=== PATIENT | female | born 1990 | race Hispanic/Latino ===

== ENCOUNTER 2020-11-23 00:03 | Inpatient (IN) | payer OTHER ==
[~2020-11-23] VITALS: Ht 165.1 cm; Wt 66.7 kg
[~2020-11-23 00:03] MED LIST: FENUGREEK500 MG PO
--- NOTE | 2020-11-23 13:03 | PR ---
[facility] [address] [facility] [place], [place] [address] Signed Progress Notes IP Datetime Report Generated by CPN: 11/23/2020 13:03 PROGRESS NOTES: [id number] Other Impressions: Slow progression Procedures: Intrauterine Pressure Catheter Plan: Continue Present Management; Augmentation; Anticipate Vaginal Delivery VITAL SIGNS: [id number] Vital Signs: Reviewed; Within Normal Limits EXAM: [id number] Dilatation: 3.0 Effacement: 80 Station: -2 MEMBRANES: [id number] Membranes Status: Ruptured Amniotic Fluid Color: Clear ROM Note: SROM reported felt per pt after VE completed Comments: Tolerating contractions well, on Pitocin but so far no real change since starting. IUPC inserted, will continue to adjust Pitocin dose. FETUS A: [id number] FHR Baseline: 150 Variability: Moderate 6-25bpm Accelerations: 15X15 Presentation: Vertex FETUS B: [id number] Signing Physician: Jamar Hills MD Copies: ~ *Electronically Signed* 11/23/20 1303 JAMAR HILLS MD PATIENT NAME: CATA IZQUIERDO PROGRESS NOTE DATE OF : 88 PHYSICIAN: JAMAR HILLS MD RPT #: [id number] REPORT IS CONFIDENTIAL AND NOT TO BE RELEASED WITHOUT AUTHORIZATION
--- NOTE | 2020-11-23 18:03 | PR ---
[facility] [address] [facility] [place], [place] [address] Signed Progress Notes IP Datetime Report Generated by CPN: 11/23/2020 18:03 PROGRESS NOTES: [id number] Impression: Normal Progression of Labor Other Impressions: Slow progression Procedures: Intrauterine Pressure Catheter Plan: Continue Present Management; Anticipate Vaginal Delivery VITAL SIGNS: [id number] Vital Signs: Reviewed; Within Normal Limits EXAM: [id number] Dilatation: 4.0 Effacement: 80 Station: -2 MEMBRANES: [id number] Membranes Status: Ruptured Amniotic Fluid Color: Clear ROM Note: Forebag amniotomy by Dr. Hills Comments: Tolerating contractions well, but getting stronger, closer together, more uncofortable; will back off on Pitocin rate, sicne beginning to make significant change FETUS A: [id number] FHR Baseline: 150 Variability: Moderate 6-25bpm Accelerations: 15X15 Presentation: Vertex FETUS B: [id number] Signing Physician: Jamar Hills MD Copies: ~ *Electronically Signed* 11/23/20 180 JAMAR HILLS MD PATIENT NAME: CATA IZQUIERDO PROGRESS NOTE DATE OF : 89 PHYSICIAN: JAMAR HILLS MD RPT #: [id number] REPORT IS CONFIDENTIAL AND NOT TO BE RELEASED WITHOUT AUTHORIZATION
--- NOTE | 2020-11-24 13:07 | PR ---
[facility] [address] [place] [address] Signed PP Progress Notes Datetime Report Generated by CPN: 11/24/2020 13:07 SUBJECTIVE: [id number] Pain: Within Normal Limits Nausea/Vomiting: Denies Vital Signs: [id number] Vital Signs: Reviewed; Within Normal Limits Notable Details: PP Hgb/Hct = 10.8/31.9 Abdomen/Uterus: Normal Lochia: Normal Extremities: Normal IMPRESSION/PLAN/PROCEDURES: [id number] Impression: Normal Progression Plan: Discharge Procedures: None Progress Notes: Doing well, without complalint, wants to go home tonight. Signing Physician: Jamar Hills MD Copies: ~ *Electronically Signed* 11/24/20 1307 JAMAR HILLS MD PATIENT NAME: CATA IZQUIERDO PROGRESS NOTE DATE OF : 89 PHYSICIAN: JAMAR HILLS MD RPT #: [id number] REPORT IS CONFIDENTIAL AND NOT TO BE RELEASED WITHOUT AUTHORIZATION
== END 2020-11-24 21:00 | disposition home or self-care (01) | DRG 807 ==
LOC: FBC 00:03
PROVIDERS: ADMIT General Practice; ATTEND General Practice
PROC: 10E0XZZ Delivery of Products of Conception, External Approach (ICD-10-PCS; principal; 2020-11-23)
PROC: 0HQ9XZZ Repair Perineum Skin, External Approach (ICD-10-PCS; 2020-11-23)
PROC: 10H07YZ Insertion of Other Device into Products of Conception, Via Natural or Artificial Opening (ICD-10-PCS; 2020-11-23)
PROC: 10907ZC Drainage of Amniotic Fluid, Therapeutic from Products of Conception, Via Natural or Artificial Opening (ICD-10-PCS; 2020-11-23)
DX: O70.0 First degree perineal laceration during delivery (principal); Z37.0 Single live birth; Z3A.39 39 weeks gestation of pregnancy; O99.892 Other specified diseases and conditions complicating childbirth; R45.4 Irritability and anger; Z86.16 Personal history of COVID-19
CPT/HCPCS: 36415; 85027; A9270; J2550; J2590; J3010; J7121

== ENCOUNTER 2023-07-24 16:09 | Inpatient (IN) | payer OTHER ==
[~2023-07-24] VITALS: Ht 165.1 cm; Wt 65.8 kg
--- NOTE | ~2023-07-24 | OR ---
[facility] [address] [place], [place] [address] Draft DATE OF OPERATION: 07/26/2023 SURGEON: Libia Cooper DO PREOPERATIVE DIAGNOSES: 1. hemorrhage secondary to uterine atony. 2. Acute blood loss anemia. 3. Syncope. POSTOPERATIVE DIAGNOSES: 1. hemorrhage secondary to uterine atony. 2. Acute blood loss anemia. 3. Syncope. PROCEDURES PERFORMED: 1. Exam under anesthesia. 2. Uterine curettage. 3. Placement of Marivel intrauterine system. ANESTHESIA: General. ESTIMATED BLOOD LOSS: 10 mL. SPECIMEN: None. DRAINS: Kendall to gravity. IMPLANTS: Marivel intrauterine system. PACKING: None. FINDINGS: Uterus firm and hemostatic with prior treatments and continued bimanual pressure to the OR. No lacerations of the perineum, vagina, or cervix. Gentle curettage was performed PATIENT NAME: CATA IZQUIERDO OPERATIVE REPORT DATE OF : [birth year] REPORT #: [id number] PHYSICIAN: LIBIA COOPER (MOSES) PCP: JAMAR HILLS MD REPORT IS CONFIDENTIAL AND NOT TO BE RELEASED WITHOUT AUTHORIZATION [facility] [address] [place] [address] Draft that demonstrated scant clot and no retained products of conception. Marivel device was placed without difficulty and less than 10 mL of blood in the suction tubing. The uterus is involuted and firm. The patient tolerated the procedure well and blood was transfused as ordered. COMPLICATIONS: None. INDICATION: Ms. Ayala is a very pleasant 32-year-old G3, now P3 female with spontaneous vaginal delivery yesterday evening. Labor was uncomplicated and bleeding initially was minimal. The patient with some mild uterine atony overnight that responded with Pitocin and bimanual massage and a Cytotec suppository was placed by the RN. I was called after the patient passed a large clot and had syncope while ambulating to the restroom. I immediately responded to the patient's room and evaluated the patient. Two additional IV sites were placed. Crystalloid was running. The patient was administered tranexamic acid, Methergine and Pitocin. The bleeding significantly improved and continued at a very slow rate with bimanual pressure. Two units of packed red blood cells were ordered and labs demonstrated normal fibrinogen and somewhat decreased hemoglobin. Decision was made to proceed with exam under anesthesia, dilation and curettage, versus Marivel system and any other indicated procedures up to and including life-saving hysterectomy. Risks, benefits, and alternatives were discussed in detail with the patient. The patient understands and wished to proceed with the procedure. TECHNIQUE: The patient was taken to the operating room. A time-out was performed to confirm correct procedure and correct patient. General anesthesia was adequately established. The patient was prepped and draped in the dorsal lithotomy position with her feet in Yellofin stirrups and again bimanual pressure had been held this entire time with scant amount of bleeding at this point. Kendall catheter was previously inserted draining good amount of clear yellow urine. The patient received Ancef 2 g preoperatively and no heparin was indicated. A weighted speculum was placed in the vagina and the anterior and posterior lips of the cervix was grasped with ring forceps. The perineum, vagina, and cervix were carefully examined and demonstrated no lacerations or bleeding. A banjo curette was selected and advanced very gently to the uterine fundus and a very gentle circumferential curettage was performed demonstrating scant amount of clot and decidua with no retained products of conception. Again, this curettage was very gentle. The Marivel intrauterine system was then selected and removed from the and the device gently guided into the uterus. The cervical balloon was then inflated to 60 mL of sterile fluid and incomplete seal was noted and another 60 mL were placed per substation mechanic's recommendation for total of 120 mL demonstrating excellent uterine seal. PATIENT NAME: CATA IZQUIERDO OPERATIVE REPORT DATE OF : [birth year] REPORT #: [id number] PHYSICIAN: LIBIA COOPER (MOSES) PCP: JAMAR HILLS MD REPORT IS CONFIDENTIAL AND NOT TO BE RELEASED WITHOUT AUTHORIZATION [address] [address] [place] The ring forceps were removed and suction tubing was then placed to 80 mm. Scant amount of blood was noted in the suction tubing less than 10 mL. The patient was observed for 5 to 7 minutes with no additional bleeding or concerning findings and the patient was taken to PACU in good and stable condition. Sponge, needle and instrument count was correct x2 at the end of the procedure. Libia Cooper DO JDW/MODL /[id number] Copies: ~ PATIENT NAME: JAS DUNNCATA OPERATIVE REPORT DATE OF : 89 REPORT #: [id number] PHYSICIAN: LIBIA COOPER) PCP: JAMAR HILLS MD REPORT IS CONFIDENTIAL AND NOT TO BE RELEASED WITHOUT AUTHORIZATION
--- OUTSIDE RECORDS SUMMARY | ~2023-07-24 | XMS | Continuity of Care Document ---
Demographics + + + | Address | [address] | | | [place] [address] | + + + | Preferred Language | Unknown | + + + | Marital Status | Never | + + + | Latter-Day Affiliation | Unknown | + + + | Race | Unknown | + + + | Ethnic Group | or | + + + Author + + + | Author | [facility] | + + + | Organization | [facility] | + + + | Address | [address] | | | [place] [address] | + + + | Phone | | + + + Care Team Providers + + + + | Care Staff Occupational Therapist Name | Role | Phone | + + + + Unavailable | Unavailable | + + + + Allergies and Intolerances + + + + + + | date | description | facility | reaction | severity | + + + + + + | (no date) | No Known | [facility] | (no reaction) | (no severity) | | | Allergies | | | | + + + + + + Encounters No information. Functional Status No information. Immunizations No information. Medications No information. Problems + + + + | date | description | facility | + + + + | 2023-05-02 10:23 | INJ/POISN/OTH CONSEQ OF | [facility] | | | EXTRN CAUSES COMP PREG, SE | | + + + + | 2023-05-02 10:23 | INJ/POISN/OTH CONSEQ OF | [facility] | | | EXTERNAL CAUSES COMP PREG, | | | | UNSP TRI | | + + + + | 2023-05-02 10:23 | UNSPECIFIED FALL, INITIAL | [facility] | | | ENCOUNTER | | + + + + | 2023-05-02 10:23 | 25 WEEKS GESTATION OF | [facility] | | | | | + + + + | 2023-05-23 02:40 | RIGHT UPPER QUADRANT PAIN | [facility] | + + + + Procedures No information. Results/Labs No information. Social History No information. Vital Signs No information."
[2023-07-25 00:56] LABS: HEMATOCRIT 34.1 % (35.0-50.0); HEMOGLOBIN 11.9 g/dL (12.0-18.0); MCH 30.1 (27-36); RBC 3.96 M/ul (4.3-5.7)
[2023-07-25 01:01] LABS: AMPHETAMINES, UR NEGATIVE (NEGATIVE); BARBITURATES, UR NEGATIVE (NEGATIVE); BENZODIAZEPINES, UR NEGATIVE (NEGATIVE); BUPRENORPHINE,UR NEGATIVE (NEGATIVE); COCAINE, UR NEGATIVE (NEGATIVE); MARIJUANA (THC), UR NEGATIVE (NEGATIVE); MDMA, UR NEGATIVE (NEGATIVE); METHADONE, UR NEGATIVE (NEGATIVE); METHAMPHETAMINE, UR NEGATIVE (NEGATIVE); OPIATES, UR NEGATIVE (NEGATIVE); OXYCODONE, UR NEGATIVE (NEGATIVE); PHENCYCLIDINE, UR NEGATIVE (NEGATIVE); TRICYCLIC ANTIDEPRESSANT, UR NEGATIVE (NEGATIVE)
[2023-07-25 01:30] LABS: ABO B; ANTIBODY SCREEN NEGATIVE; RH POSITIVE
[2023-07-25 01:32] VITALS: BP 113/53
--- NOTE | 2023-07-25 14:19 | PR ---
[facility] [address] [place], [place] [address] Signed Progress Notes IP Datetime Report Generated by CPN: 07/25/2023 14:19 PROGRESS NOTES: [id number] Impression: Normal Progression of Labor Procedures: Artificial ROM Plan: Continue Present Management Informed Consent Obtain: Vaginal Delivery VITAL SIGNS: [id number] Vital Signs: Reviewed; Within Normal Limits EXAM: [id number] Dilatation: 3.5 Effacement: 50 Station: -3 Contractions: Rare MEMBRANES: [id number] Comments: Pt seen and examined. Doing well. PAinful contractions. Discussed AROM and pt desires. Cephalic and well applied to cervix. AROM easily performed for moderate amount clear fluid FETUS A: [id number] FHR Baseline: 130 Accelerations: 15X15 Decelerations: None FHR Category: Category I Presentation: Vertex Comments on Fetus A: No evidence of metabolic acidosis FETUS B: [id number] Signing Physician: Libia Cooper DO Copies: ~ *Electronically Signed* 07/25/23 1419 LIBIA COOPER (MOSES) DO PATIENT NAME: CATA IZQUIERDO PROGRESS NOTE DATE OF : 89 PHYSICIAN: LIBIA COOPER) DO RPT #: [id number] REPORT IS CONFIDENTIAL AND NOT TO BE RELEASED WITHOUT AUTHORIZATION
--- NOTE | 2023-07-25 18:09 | PR ---
[facility] [address] [facility] [place] [address] Signed Progress Notes IP Datetime Report Generated by CPN: 07/25/2023 18:09 PROGRESS NOTES: [id number] Impression: Normal Progression of Labor; Reassuring Heart Rate Procedures: Artificial ROM Plan: Continue Present Management; Anticipate Vaginal Delivery Informed Consent Obtain: Vaginal Delivery VITAL SIGNS: [id number] Vital Signs: Reviewed; Within Normal Limits EXAM: [id number] Dilatation: 5.5 Effacement: 70 Station: -2 Contractions: Rare MEMBRANES: [id number] Comments: Pt seen and evaluated. Uncomfortable w/ contractions. Using nitrous w/ some slight improvement. Declines epidural. Reviewed normal progession of labor, reassuring FHT, and anticipated course of labor / delivery. All questions answered FETUS A: [id number] FHR Baseline: 130 Accelerations: 15X15 Decelerations: None FHR Category: Category I Presentation: Vertex Comments on Fetus A: No evidence of metabolic acidosis FETUS B: [id number] Signing Physician: Libia Cooper DO Copies: ~ *Electronically Signed* 07/25/23 2434 LIBIA COOPER (MOSES) DO PATIENT NAME: CATA IZQUIERDO PROGRESS NOTE DATE OF : 89 PHYSICIAN: LIBIA COOPER (JD) DO RPT #: [id number] REPORT IS CONFIDENTIAL AND NOT TO BE RELEASED WITHOUT AUTHORIZATION
[2023-07-26 03:20] LABS: BASOPHILS 0.5 % (0-2); HEMATOCRIT 27.3 % (35.0-50.0); HEMOGLOBIN 9.3 g/dL (12.0-18.0); LYMPHOCYTES 22.4 % (24-44); MCH 29.9 (27-36); MCHC 34.2 g/dl (30-36); MCV 87.4 fl (81-99); MONOCYTES 6.7 % (0-12); NEUTROPHILS 70.4 % (39-80); PLATELET COUNT 226 K/uL (140-440); RBC 3.13 M/ul (4.3-5.7)
[2023-07-26 03:36] LABS: INR 1.09 (0.80-1.30); PROTIME 13.7 Sec (11.2-14.2)
--- NOTE | 2023-07-26 04:13 | NUR ---
RESPONDED TO A RAPID RESONSE TEAM AND UPON ARRIVAL FOUND FEMALE PATIENT ON THE FLOOR PALE, SHAKING AND LOSING BLOOD. TEAM PLACED PATIENT BACK INTO BED AND I PLACED O2 VIA SIMPLE MASK AT 15 LPM. SPO2 WAS THEN 100%, BP STABLE. PATIENT COLOR IMPROVED AND SHAKING RESOLVED. ER DOCTOR AND SURGEON PRESENT. FLUIDS GOING AND LAB NOTIFIED OF NEED FOR BLOOD. OR CREW ARRIVING AND RT WAS RELEASE BY INVESTMENT ACCOUNTING CLERK.
[2023-07-26 05:16] LABS: ALBUMIN 1.9 g/dL (3.4-5.0); ALBUMIN/GLOBULIN RATIO 0.68 (1.1-2.4); ANION GAP 13.9 (7-21); BILIRUBIN, TOTAL 0.4 ng/dL (0.2-1.0); CALCIUM 7.7 mg/dL (8.5-10.1); CREATININE, SERUM 0.8 mg/dL (0.55-1.02); POTASSIUM 3.9 mmol/L (3.5-5.1); PROTEIN, TOTAL 4.7 g/dL (6.4-8.2)
[2023-07-26 05:40] VITALS: BP 112/78
[2023-07-26 05:48] LABS: HEMATOCRIT 33.2 % (35.0-50.0); HEMOGLOBIN 11.4 g/dL (12.0-18.0); MCH 30.1 (27-36); MCHC 34.3 g/dl (30-36); MCV 87.8 fl (81-99); RBC 3.78 M/ul (4.3-5.7); RDW 13.2 (10.5-15.0)
--- NOTE | 2023-07-26 05:48 | NUR ---
07/26/23 0548 Basilia [place] 0431- PT ARRIVES TO UNIT VIA STRETCHER FROM OR. PT IS DROWSY BUT AROUSABLE TO VERBAL STIMULI. PT RESPIRATIONS EVEN AND UNLABORED, NO SIGNS OF DISTRESS. PT ON RA AT THIS TIME, O2 >90% VIA CONTINUOUS PULSE OX. X2 IV SITE WNL. OLVERA DRAINING TO GRAVITY CLEAR/YELLOW URINE. JADDA DEVICE IN PLACE AND UNCLAMPED TO 80 MMHG SUCTION. 0440- PT REPORTS NO PAIN OR NAUSEA AT THIS TIME AND IS ASKING QUESTIONS APPROPRIATELY. HOB ELEVATED SLIGHTLY AT PT REQUEST, PT TOLERATING WITHOUT ANY DIZZINESS/NAUSEA AT THIS TIME. JADDA DEVICE REMAINS IN PLACE W/MEDIPORE TAPE TO INNER LFT THIGH. 0450- 2ND UNIT OF BLOOD STARTED AT THIS TIME IN LFT HAND. IV SITE WNL. PT REPORTS NO NEW SYMPTOMS AT THIS TIME. RESPIRATIONS EVEN AND UNLABORED, NO SIGNS OF DISTRESS. PT IS TEARY AND EAGER TO GET BACK TO BABY AND FAMILY, THERAPEUTIC COMMUNICATION AT THIS TIME. 0507- PT REPORTS 5/10 PAIN DESCRIBED PRESSURE IN LOWER BACK AT THIS TIME. PT REPORTS THIS TOLERABLE, NO PRN MEDS GIVEN. 0520- PT TO [facility] VIA STRETCHER FROM PACU. REPORT GIVEN TO ROSIE FBC RN. PT HAS SMALL AMOUNT OF SS DRAINAGE FROM VAGINA WHILE SUCTION CLAMPED DURING TRANSPORTATION, VISUALIZED WITH FBC RN AT THIS TIME. PT BED PLACED IN LOWER POSITION, CALL LIGHT WITHIN REACH. FAMILY AND BABY AT BEDSIDE AT THIS TIME. NO FURTHER NEEDS OR QUESTIONS AT THIS TIME.
[2023-07-26 06:31] LABS: PARTIAL THROMBOPLASTIN TIME 22.8 Sec (22.9-41.3)
[2023-07-26 06:33] LABS: INR 1.07 (0.80-1.30); PROTIME 13.4 Sec (11.2-14.2)
--- NOTE | 2023-07-26 06:35 | PR ---
[facility] [address] [place], [place] [address] Signed PP Progress Notes Datetime Report Generated by CPNickolas: 07/26/2023 06:35 SUBJECTIVE: [id number] Pain: Within Normal Limits Pain Comments: hemorrhage Nausea/Vomiting: Denies Bowel Movement: No Vital Signs: [id number] Vital Signs: Reviewed; Within Normal Limits Notable Details: Episode of syncope, tachycardia, and hypotension; improved Cardiovascular: Normal Respiratory: Normal Abdomen/Uterus: Normal Lochia: Normal Vulva/Perineum: Normal Breasts: Not Done CVA Tenderness: Normal Extremities: Normal Incision: Not Applicable Progress: Normal Exam Comments: Fundus firm U-2. No blood at the perineum and very scant blood in Marivel suction tubing IMPRESSION/PLAN/PROCEDURES: [id number] Impression: Normal Progression Other Impression: PP Hemorrhage resolved. Other Plans: Suction off Marivel; consider removal in 30 minutes Procedures: None Other Procedures: Marivel vs bakri; exam under anesthesia Progress Notes: Pt seen and examined. Doing very well. Scant bleeding w/ Marivel in place. Hgb 11.4 and coags pending. Pt w/ large amount of clear yellow urine in alves catheter. No lightheadeness or dizziness. Vitals stable and no tachycardia. Very happy w/ pt's progress. Will d/c vacuum suction to Marivel per manufacture's guidelines and will consider d/c Marivel altogether in 30 minutes if remains hemostatic. 2nd unit PRBC infusing. Will await coag results. Anticipate routine recovery Signing Physician: Libia Cooper, DO Copies: *Electronically Signed* 07/26/23634 LIBIA COOPER) DO PATIENT NAME: JAS DUNNCATA PROGRESS NOTE DATE OF : 89 PHYSICIAN: LIBIA COOPER) DO RPT #: [id number] REPORT IS CONFIDENTIAL AND NOT TO BE RELEASED WITHOUT AUTHORIZATION [address] [place] [address] Signed ~ *Electronically Signed* 07/26/23634 LIBIA COOPER) DO PATIENT NAME: JAS DUNNCATA PROGRESS NOTE DATE OF : 89 PHYSICIAN: LIBIA COOPER (JD) DO RPT #: [id number] REPORT IS CONFIDENTIAL AND NOT TO BE RELEASED WITHOUT AUTHORIZATION
--- NOTE | 2023-07-26 08:10 | PR ---
[facility] [address] [place], [place] [address] Signed PP Progress Notes Datetime Report Generated by CPN: 07/26/2023 08:10 SUBJECTIVE: [id number] Pain: Within Normal Limits Pain Comments: hemorrhage Nausea/Vomiting: Denies Flatus: Yes Bowel Movement: No Vital Signs: [id number] Vital Signs: Reviewed; Within Normal Limits Notable Details: Episode of syncope, tachycardia, and hypotension; improved Cardiovascular: Normal Respiratory: Normal Abdomen/Uterus: Normal Lochia: Normal Vulva/Perineum: Normal Breasts: Not Done CVA Tenderness: Normal Extremities: Normal Incision: Not Applicable Progress: Normal Exam Comments: Fundus firm U-1. No additional bleeding. Marivel removed w/out difficulty. Pt tolerated very well IMPRESSION/PLAN/PROCEDURES: [id number] Impression: Normal Progression Other Impression: PP Hemorrhage resolved. Other Plans: Suction off Marivel; consider removal in 30 minutes Procedures: None Other Procedures: Marivel vs bakri; exam under anesthesia Progress Notes: Marivel removed. Doing well. No additional bleeding. Will continue to monitor bleeding, vitals, urine output etc. Recheck CBC in AM. All questions answered to the best of my ability and to pt's apparent satisfaction. Anticipate d/c home tomorrow. Signing Physician: Libia Cooper DO Copies: *Electronically Signed* 07/26/23 0810 LIBIA COOPER (MOSES) DO PATIENT NAME: CATA IZQUIERDO PROGRESS NOTE DATE OF : 89 PHYSICIAN: LIBIA COOPER (JD) DO RPT #: [id number] REPORT IS CONFIDENTIAL AND NOT TO BE RELEASED WITHOUT AUTHORIZATION [facility] [address] [place] [address] Signed ~ *Electronically Signed* 07/26/23 0810 LIBIA COOPER) DO PATIENT NAME: CATA IZQUIERDO PROGRESS NOTE DATE OF : 89 PHYSICIAN: LIBIA COOPER) DO RPT #: [id number] REPORT IS CONFIDENTIAL AND NOT TO BE RELEASED WITHOUT AUTHORIZATION
[2023-07-26 14:39] LABS: IS CROSSMATCH COMPATIBLE
[2023-07-27 08:05] LABS: BASOPHILS 0.6 % (0-2); EOSINOPHILS 0.2 % (0-6); HEMATOCRIT 28.3 % (35.0-50.0); HEMOGLOBIN 9.9 g/dL (12.0-18.0); LYMPHOCYTES 29.7 % (24-44); MCH 30.4 (27-36); MCHC 35.1 g/dl (30-36); MCV 86.8 fl (81-99); MONOCYTES 6.9 % (0-12); NEUTROPHILS 62.6 % (39-80); PLATELET COUNT 182 K/uL (140-440); RBC 3.26 M/ul (4.3-5.7); RDW 13.5 (10.5-15.0)
--- NOTE | 2023-07-27 08:28 | PR ---
[facility] [facility] [address] [place], [place] [address] Signed PP Progress Notes Datetime Report Generated by CPN: 07/27/2023 08:28 SUBJECTIVE: [id number] Pain: Within Normal Limits Pain Comments: hemorrhage Nausea/Vomiting: Denies Flatus: Yes Bowel Movement: Yes Vital Signs: [id number] Vital Signs: Reviewed Notable Details: Episode of syncope, tachycardia, and hypotension; improved Cardiovascular: Normal Respiratory: Normal Abdomen/Uterus: Normal Lochia: Normal Vulva/Perineum: Not Done Breasts: Not Done CVA Tenderness: Normal Extremities: Normal Incision: Not Applicable Progress: Normal Exam Comments: Fundus firm U-2 nontender IMPRESSION/PLAN/PROCEDURES: [id number] Impression: Normal Progression Other Impression: PP Hemorrhage resolved. Plan: Discharge Other Plans: Suction off Marivel; consider removal in 30 minutes Procedures: None Other Procedures: Marivel vs bakri; exam under anesthesia Progress Notes: Pt seen and examined. Doing well. Ambulating, voiding, and tolerating full diet. Pain and lochia minimal. well. No fevers/chills. No lightheadedness / dizziness. Desires d/c home. Reviewed labs, course including transfusion / pp hemorrhage, and discharge instructions/medications. All questions answered. Signing Physician: Libia Cooper DO Copies: *Electronically Signed* 07/27/23 0828 LIBAI COOPER (MOSES) DO PATIENT NAME: CATA IZQUIERDO PROGRESS NOTE DATE OF : 89 PHYSICIAN: LIBIA COOPER (JD) DO RPT #: [id number] REPORT IS CONFIDENTIAL AND NOT TO BE RELEASED WITHOUT AUTHORIZATION [facility] [address] [place] [address] Signed ~ *Electronically Signed* 07/27/23 0828 LIBIA COOPER) DO PATIENT NAME: CATA IZQUIERDO PROGRESS NOTE DATE OF : 89 PHYSICIAN: LIBIA COOPER) DO RPT #: [id number] REPORT IS CONFIDENTIAL AND NOT TO BE RELEASED WITHOUT AUTHORIZATION
== END 2023-07-27 14:15 | disposition home or self-care (01) | DRG 768 ==
LOC: FBC 07-25 00:18
PROVIDERS: ADMIT Obstetrics & Gynecology; ATTEND Obstetrics & Gynecology
PROC: 10907ZC Drainage of Amniotic Fluid, Therapeutic from Products of Conception, Via Natural or Artificial Opening (ICD-10-PCS; 2023-07-26)
PROC: 3E0R3BZ Introduction of Anesthetic Agent into Spinal Canal, Percutaneous Approach (ICD-10-PCS; 2023-07-26)
PROC: 00HU33Z Insertion of Infusion Device into Spinal Canal, Percutaneous Approach (ICD-10-PCS; 2023-07-26)
PROC: 0HQ9XZZ Repair Perineum Skin, External Approach (ICD-10-PCS; 2023-07-26)
PROC: 10D07Z8 Extraction of Products of Conception, Other, Via Natural or Artificial Opening (ICD-10-PCS; 2023-07-26)
PROC: 0W3R7ZZ Control Bleeding in Genitourinary Tract, Via Natural or Artificial Opening (ICD-10-PCS; 2023-07-26)
PROC: 30233N1 Transfusion of Nonautologous Red Blood Cells into Peripheral Vein, Percutaneous Approach (ICD-10-PCS; 2023-07-26)
PROC: 10E0XZZ Delivery of Products of Conception, External Approach (ICD-10-PCS; principal; 2023-07-26 03:45)
DX: O48.0 Post-term pregnancy (principal); Z37.0 Single live birth; D62 Acute posthemorrhagic anemia; O72.1 Other immediate postpartum hemorrhage; O99.02 Anemia complicating childbirth; R55 Syncope and collapse; O76 Abnormality in fetal heart rate and rhythm complicating labor and delivery; R00.0 Tachycardia, unspecified; O26.53 Maternal hypotension syndrome, third trimester; O70.0 First degree perineal laceration during delivery; N20.0 Calculus of kidney; O99.892 Other specified diseases and conditions complicating childbirth; Z3A.40 40 weeks gestation of pregnancy
CPT/HCPCS: 00940; 36415; 80053; 85025; 85027; 85384; 85610; 85730; 86850; 86900; 86901; 86922; A9270; J0131; J0330; J0690; J1100; J2001; J2210; J2405; J2590; J2704; J3010; J7121; P9016